=== PATIENT | female | born 1980 | race Caucasian/White ===

== ENCOUNTER 2018-02-13 20:16 | Emergency (ER) | payer SELFPAY ==
[~2018-02-13] VITALS: Ht 172.7 cm; Wt 77.1 kg
[2018-02-13 20:35] VITALS: Ht 172.7 cm; Wt 77.1 kg
[2018-02-13 22:10] VITALS: BP 128/46
== END 2018-02-13 21:40 | disposition home or self-care (01) ==
LOC: ED 20:16
DX: S46.912A Strain of unspecified muscle, fascia and tendon at shoulder and upper arm level, left arm, initial encounter (principal); X58.XXXA Exposure to other specified factors, initial encounter; Y93.89 Activity, other specified; Y92.89 Other specified places as the place of occurrence of the external cause; Y99.8 Other external cause status

== ENCOUNTER 2019-09-17 09:24 | Emergency (ER) | payer OTHER ==
[~2019-09-17] VITALS: Ht 172.7 cm; Wt 86.6 kg
[2019-09-17 09:27] VITALS: BP 132/74; Ht 172.7 cm; Wt 86.6 kg
== END 2019-09-17 10:10 | disposition home or self-care (01) ==
LOC: ED 09:24
DX: L03.211 Cellulitis of face (principal); F17.210 Nicotine dependence, cigarettes, uncomplicated; Z90.89 Acquired absence of other organs
CPT/HCPCS: 99406